=== PATIENT | male | born 1980 | race Caucasian/White ===

== ENCOUNTER 2019-07-10 20:49 | Emergency (ER) | payer OTHER ==
[~2019-07-10] VITALS: Ht 165.1 cm; Wt 85.0 kg
[2019-07-10] MEDS ORDERED: SODIUM CHLORIDE 0.9% 1,000 ML IV ONE (22:41)
[2019-07-11 00:20] LABS: BASOPHILS % 0.9 % (0.0-2.0); EOSINOPHILS % 2.6 % (0.0-5.0); HEMOGLOBIN. 13.7 g/dL (14.0-18.0); LYMPHOCYTES % 37.9 % (20.0-50.0); MEAN CORPUSCULAR HEMOGLOBIN 31.9 pg (28.0-32.0); MEAN CORPUSCULAR VOLUME 93.4 fL (80.0-94.0); MEAN PLATELET VOLUME 11.9 fl (7.4-10.4); MONOCYTES % 7.7 % (2.0-8.0); NEUTROPHILS % 50.9 % (40.0-76.0); PLATELET 215 x1000/uL (130-400); RED BLOOD CELL COUNT 4.29 mill/uL (4.7-6.1); RED CELL DISTRIBUTION WIDTH 12.6 % (11.6-14.6)
[2019-07-11 00:26] LABS: CHLORIDE 107 mEq/L (98-107)
[2019-07-11 00:28] LABS: PROTHROMBIN TIME 10.1 sec (9.6-11.0)
[2019-07-11 00:30] LABS: ETHANOL BLOOD < 10 mg/dL
[2019-07-11] MEDS ORDERED: ASPIRIN 325MG EC TABLET PO NR (00:30)
[2019-07-11] MEDS ORDERED: NITROGLYCERIN OINT 1GM/INCH UDPKT TD NR (00:30)
[2019-07-11] MEDS ORDERED: ONDANSETRON HCL 4MG/2ML INJ IV NR (02:15)
[2019-07-11] MEDS ORDERED: MORPHINE SULFATE 4 MG/ML CPJ (NOT FOR IM USE) IV NR (02:15)
[2019-07-11 10:41] LABS: CLARITY URINE CLEAR (CLEAR); COLOR URINE YELLOW (YELLOW); KETONES URINE NEGATIVE (NEGATIVE); LEUKOCYTE ESTERASE URINE NEGATIVE (NEGATIVE); NITRITE URINE NEGATIVE (NEGATIVE); OCCULT BLOOD URINE NEGATIVE (NEGATIVE); PH URINE 5.5 (4.5-8.0); PROTEIN URINE NEGATIVE (NEGATIVE); SPECIFIC GRAVITY URINE 1.029 (1.005-1.030); UROBILINOGEN URINE 0.2 E.U./dL (0.2-1.0)
[2019-07-11] MEDS ORDERED: MIDAZOLAM HCL 5 MG/5 ML VIAL ONE (10:53)
[2019-07-11] MEDS ORDERED: FENTANYL CITRATE/PF 50MCG/ML 2ML VIAL IV PRN (10:53)
[2019-07-11] MEDS ORDERED: FENTANYL CITRATE/PF 50MCG/ML 2ML VIAL ONE (10:53)
[2019-07-11] MEDS ORDERED: MIDAZOLAM HCL 2 MG/2 ML VIAL IV PRN (10:55)
[2019-07-11 11:05] LABS: *BARBITURATES SCREEN URINE NEGATIVE (NEGATIVE); CANNABINOID URINE SCREEN PRESUMTIVE POSITIVE (NEGATIVE)
[2019-07-11 11:06] LABS: *AMPHETAMINES SCREEN URINE PRESUMTIVE POSITIVE (NEGATIVE); *BENZODIAZEPINES SCREEN URINE NEGATIVE (NEGATIVE); *COCAINE SCREEN URINE PRESUMTIVE POSITIVE (NEGATIVE); METHADONE URINE SCREEN NEGATIVE (NEGATIVE); OPIATES URINE SCREEN PRESUMTIVE POSITIVE (NEGATIVE)
[2019-07-11 11:08] LABS: PHENCYCLIDINE URINE SCREEN NEGATIVE (NEGATIVE)
[2019-07-11] MEDS ORDERED: BACTERIOSTATIC SODIUM CHLORIDE 0.9% 30ML VIAL IJ ONE (11:28)
[2019-07-11 13:45] VITALS: BP 119/69
== END 2019-07-11 13:50 | disposition home or self-care (01) ==
LOC: ER 20:49 → EDBEDREQ 22:48 → EDBEDREQTM 07-11 02:12 → EDBEDREQ 07-11 02:12 → EDBEDREQDT 07-11 02:12 → ER 07-11 13:50 → CANBEDREQ 07-11 15:49
DX: T18.8XXA Foreign body in other parts of alimentary tract, initial encounter (principal); R07.9 Chest pain, unspecified; E03.9 Hypothyroidism, unspecified; K44.9 Diaphragmatic hernia without obstruction or gangrene; K29.50 Unspecified chronic gastritis without bleeding; F41.9 Anxiety disorder, unspecified; R42 Dizziness and giddiness; N28.9 Disorder of kidney and ureter, unspecified; F90.9 Attention-deficit hyperactivity disorder, unspecified type; F12.10 Cannabis abuse, uncomplicated; F17.200 Nicotine dependence, unspecified, uncomplicated; F19.10 Other psychoactive substance abuse, uncomplicated; R59.0 Localized enlarged lymph nodes; X58.XXXA Exposure to other specified factors, initial encounter; Y93.89 Activity, other specified; Y92.89 Other specified places as the place of occurrence of the external cause; Y99.8 Other external cause status
CPT/HCPCS: 36415; 43239; 70360; 70490; 71045; 80053; 80305; 80320; 81003; 83690; 84484; 85025; 85610; 88305; 88313; 93005; 96361; 96374; 96375; 99291; J2250; J2270; J2405; J3010; J3490; J7030; Z7610; G0480